=== PATIENT | female | born 1945 | race Two or more races ===

== ENCOUNTER 2022-08-11 05:10 | Emergency (ER) | payer OTHER ==
[~2022-08-11] VITALS: Ht 175.3 cm; Wt 97.5 kg
[2022-08-11] MEDS ORDERED: ELIQUIS2.5 MG (05:14)
[2022-08-11] MEDS ORDERED: CARDIZEM30 MG (05:15)
[2022-08-11] MEDS ORDERED: LEXAPRO20 MG (05:15)
[2022-08-11] MEDS ORDERED: ATACAND4 MG (05:16)
[2022-08-11] MEDS ORDERED: SULINDAC200 MG (05:16)
[2022-08-11] MEDS ORDERED: BUSPIRONE HCL5 MG (05:16)
== END 2022-08-11 17:54 | disposition home or self-care (01) ==
LOC: ER 05:10
DX: K57.30 Diverticulosis of large intestine without perforation or abscess without bleeding (principal); K86.2 Cyst of pancreas

== ENCOUNTER 2023-06-02 06:01 | Emergency (ER) | payer OTHER ==
[~2023-06-02] VITALS: Ht 170.2 cm; Wt 90.7 kg
[~2023-06-02 06:01] MED LIST: ATACAND4 MG; BUSPIRONE HCL5 MG; CARDIZEM30 MG; ELIQUIS2.5 MG; LEXAPRO20 MG; SULINDAC200 MG
[2023-06-02] MEDS ORDERED: RESTORIL30 MG PO (06:16)
[2023-06-02] MEDS ORDERED: ESCITALOPRAM OX20 MG PO (06:17)
[2023-06-02] MEDS ORDERED: CLONAZEPAM2 MG PO (06:17)
[2023-06-02 09:12] LABS: MEAN CELL VOLUME 82.6 fL (80.00-100.00); MEAN CORPUSCULAR HEMOGLOBIN 27.6 pg (27.00-32.0); MEAN CORPUSCULAR HGB CONC 33.4 g/dl (32.0-36.0); PLATELET COUNT 182 K/uL (150-450); RED BLOOD COUNT 5.09 M/uL (4.00-6.00); RED CELL DISTRIBUTION WIDTH 15.8 % (11.5-14.5)
[2023-06-02 09:35] LABS: INR 1.04; PROTHROMBIN TIME 10.9 SECONDS (9.0-11.5)
[2023-06-02 09:59] LABS: ALBUMIN 3.4 gm/dL (3.4-5.0); BILIRUBIN TOTAL 0.62 mg/dL (0.3-1.2); CALCIUM 9.4 mg/dL (8.5-10.1); CREATININE SERUM 0.44 mg/dL (0.55-1.02); GFR 137.94; GLOBULINA 3.7 G/DL (2.4-3.5); POTASSIUM 3.75 mEq/L (3.5-5.1); TOTAL PROTEIN 7.1 gm/dL (6.4-8.2)
[2023-06-02 10:18] LABS: PH,URINE 7.5 (5.0-8.0); URINE APPEARANCE Clear; URINE BILIRRUBIN Negative (NEGATIVE); URINE BLOOD Negative; URINE COLOR Yellow; URINE GLUCOSE Negative (NEGATIVE); URINE LEUKOCYTE Negative; URINE NITRATE Negative; URINE PROTEIN Negative (NEGATIVE); URINE UROBILINOGEN 0.2 E.U./dl
[2023-06-02 10:19] LABS: URINE RBC 2.8 uL (0.0-20.8)
[2023-06-02 10:47] LABS: URINE BACTERIA 0 uL (0.0-1933); URINE EPITHELIAL CELLS 0.9 uL (0.0-38.8)
== END 2023-06-02 14:08 | disposition home or self-care (01) ==
LOC: ER 06:01
PROVIDERS: General Practice
DX: E86.0 Dehydration (principal); R53.1 Weakness; I48.91 Unspecified atrial fibrillation; R53.81 Other malaise; I10 Essential (primary) hypertension

== ENCOUNTER 2024-12-16 12:03 | Emergency (ER) | payer OTHER ==
[~2024-12-16] VITALS: Ht 170.2 cm; Wt 74.8 kg
[~2024-12-16 12:03] MED LIST changes: +CLONAZEPAM2 MG PO; +ESCITALOPRAM OX20 MG PO; +RESTORIL30 MG PO
[2024-12-16] MEDS ORDERED: 0.9 % SODIUM CHLORIDE 1,000 ML IV SCH (12:45)
[2024-12-16] MEDS ORDERED: CEFTRIAXONE SODIUM 1,000 MG VIAL IV ONE ×2 (12:45→16:00)
[2024-12-16] MEDS ORDERED: CEFTRIAXONE SODIUM 1,000 MG VIAL ONE (13:34)
[2024-12-16 14:13] LABS: BASO % 0.6 % (0.1-1.2); EOS # 0.11 (0.04-0.54); EOS % 1.3 % (0.7-7.0); HEMATOCRIT 39.9 % (34.1-44.9); HEMOGLOBIN 12.9 g/dL (11.2-15.7); LYMPH # 1.07 (1.18-3.74); LYMPH % 12.9 % (19.3-53.1); MEAN CORPUSCULAR HEMOGLOBIN 27.1 pg (25.6-32.2); MONO # 0.63 (0.24-0.82); MONO % 7.6 % (4.7-12.5); NEUT % 77.4 % (34.0-71.1); PLATELET COUNT 164 K/uL (163-369); RED BLOOD COUNT 4.76 M/uL (3.93-5.22); RED CELL DISTRIBUTION WIDTH 15.4 % (11.6-14.4)
[2024-12-16 14:37] LABS: CREATININE SERUM 0.5 mg/dL (0.55-1.02); GFR 118.71; POTASSIUM 3.62 mEq/L (3.5-5.1)
[2024-12-16 15:00] LABS: URINE APPEARANCE Cloudy; URINE BILIRRUBIN Negative (NEGATIVE); URINE BLOOD Trace; URINE COLOR Yellow; URINE GLUCOSE Negative (NEGATIVE); URINE KETONE Negative (NEGATIVE); URINE LEUKOCYTE Large; URINE NITRATE Positive; URINE PROTEIN Negative (NEGATIVE)
[2024-12-16 15:02] LABS: URINE EPITHELIAL CELLS 9.1 uL (0.0-38.8); URINE RBC 7.2 uL (0.0-20.8); URINE WBC 478.2 uL (0.0-23.2)
[2024-12-16 15:12] LABS: URINE BACTERIA > 9821.5 uL (0.0-1933)
[2024-12-16] MEDS ORDERED: PEPCID AC20 MG PO (17:31)
[2024-12-16] MEDS ORDERED: BACTRIM DS TAB1 EACH PO (17:31)
== END 2024-12-16 18:06 | disposition home or self-care (01) ==
LOC: ER 12:03
PROVIDERS: Emergency Medicine
DX: N39.0 Urinary tract infection, site not specified (principal); I10 Essential (primary) hypertension